=== PATIENT | female | born 1985 | race Caucasian/White ===

== ENCOUNTER 2020-12-16 14:28 | Outpatient (CLI) | payer BC, SELFPAY ==
--- NOTE | ~2020-12-16 | MR_ITS ---
EXAMINATION: MR knee RT wo con DATE: 12/16/2020 15:46 INDICATION: Right knee joint effusion, pain and difficulty straightening the knee post injury one wee k prior TECHNIQUE: Magnetic resonance imaging (MRI) of the right knee was performed without intravenous contr ast. Sequences included coronal PD-weighted FSE, coronal PD-weighted FS FSE, sagittal T2-weighted FS E, sagittal PD-weighted FS FSE and axial PD weighted fat saturated FSE. COMPARISON: None. FINDINGS: Medial compartment: Complex tear at the posterior horn of the medial meniscus with longitudinal vertical tear plane in th e peripheral third of the meniscus and with more irregular tearing at the lateral side of the posteri or horn suggesting partial avulsion at the posterior root. Deep chondral fissuring without degenerati ve subchondral changes at the lateral side of the density anterior to central weightbearing medial fe moral condyle. Articular cartilage is normal at the medial tibial plateau. Lateral compartment: Lateral meniscus is normal. Small partial-thickness chondral flap tear involving approximately 50% th e cartilage thickness at the anterior weightbearing lateral femoral condyle. Remainder of the cartila ge in the lateral compartment is normal. Patellofemoral compartment: Partial-thickness chondral fissuring involving up to 50% the cartilage thickness at the lateral cohen lar facet and apical ridge. More shallow fissuring at the medial facet. Trochlear cartilage is normal . Ligaments and tendons: Complete tear of the anterior cruciate ligament. The posterior cruciate ligament is normal.. The medi al collateral ligament and fibular collateral ligament complex are normal. The extensor mechanism is normal with couple bands of magic angle artifact at the distal patellar tendon. The visualized medial and lateral hamstring tendons as well as the iliotibial band are normal. Fluid: Large right knee joint effusion. Scattered likely reactive subcutaneous edema about the knee. No loos e osteochondral bodies identified. Osseous/other: Mild marrow edema along the posterior rim of the medial and lateral tibial plateaus without evident f racture line most consistent with a bone contusion related to anterior tibial subluxation injury occu rring at the time of the anterior cruciate ligament tear. No fracture or pathologic marrow replacing process. IMPRESSION: 1. Complete tear of the anterior cruciate ligament with likely bone contusion along the posterior rim of the medial lateral tibial plateau consistent with an anterior tibial subluxation injury. 2. Complex tear at the posterior horn of the medial meniscus including a likely partial avulsion of t he posterior root. 3. Small regions of moderate grade chondromalacia along the anterior weightbearing medial and lateral femoral condyles and at the patella. Reviewed, dictated and finalized at location A. IMPRESSION: 1. Complete tear of the anterior cruciate ligament with likely bone contusion a long the posterior rim of the medial lateral tibial plateau consistent with an anterior tibial subluxation injury. 2. Complex tear at the posterior horn of the medial meniscus including a likely partial avulsion of the posterior root. 3. Small regions of moderate grade chondromalacia along the anterior weightbear ing medial and lateral femoral condyles and at the patella.
== END 2020-12-16 14:29 | disposition home or self-care (01) ==
PROVIDERS: Visit Provider Internal Medicine
DX: M25.461 Effusion, right knee (principal); S83.231A Complex tear of medial meniscus, current injury, right knee, initial encounter; X58.XXXA Exposure to other specified factors, initial encounter; S83.511A Sprain of anterior cruciate ligament of right knee, initial encounter
CPT/HCPCS: 73721

== ENCOUNTER 2021-02-18 19:23 | Observation (INO) | payer BC, SELFPAY ==
--- NOTE | ~2021-02-18 | CT_ITS ---
EXAMINATION: CTA chest PE protocol DATE: 02/18/2021 23:08 INDICATION: Chest pain and shortness of breath TECHNIQUE: Computed tomography (CT) pulmonary angiogram of the chest was performed with 200 mL Omnipa que-350 intravenous contrast. Additional 3D reconstructions utilizing coronal maximum intensity proje ction (MIP) were performed. Automated exposure control and iterative reconstruction technique were em ployed. The dose-length product was 467.99 mGy-cm. COMPARISON: None FINDINGS: Excellent contrast opacification of the pulmonary arteries on the second set of images. There is mild streak artifact from dense contrast in the superior vena cava and right atrium. Mild scattered respi ratory motion artifact which does not significantly limit evaluation. There are pulmonary emboli in m ultiple segmental and subsegmental pulmonary arteries in the basilar segments of both the left and ri ght lower lobes, a pulmonary embolism subtle across the bifurcation of the right middle lobar pulmona ry artery as well as pulmonary emboli in the anterior and posterior segmental pulmonary arteries of t he right upper lobe. Patchy regions of groundglass opacity and consolidation, several with peripheral wedge-shaped configuration in the left and to lesser degree right lower lobes most likely representi ng pulmonary infarcts. Small left pleural effusion. Heart size is normal. No leftward bowing of the v entricular septum to suggest right heart strain although there is enlargement of the central pulmonar y arteries consistent with likely secondary pulmonary arterial hypertension. No pericardial effusion. Thoracic aorta is normal in caliber with no dissection. Multinodular goiter which narrows the trache a at the level of the thoracic inlet. No pathologically enlarged thoracic lymphadenopathy. Visualized upper abdomen and bones are unremarkable. IMPRESSION: 1. Numerous pulmonary emboli involving multiple pulmonary arteries in the bilateral lower, right midd le and right upper lobes with moderate to large clot burden. Dr. Abernathy discussed these findings wi Dr. Monk at 11:50 AM. 2. Patchy airspace disease in the basilar segments of the bilateral lower lobes most likely represent ing pulmonary infarcts. 3. Small left pleural effusion. 4. Enlargement of the central pulmonary arteries consistent with pulmonary arterial hypertension like ly secondary to the pulmonary emboli but no leftward bowing of the ventricular septum to suggest righ t heart strain. 5. Multinodular goiter which narrows the trachea at the thoracic inlet. Reviewed, dictated and finalized at location A.
--- NOTE | ~2021-02-18 | CT_ITS ---
EXAMINATION: CT diagnostic chest wo con DATE: 02/18/2021 20:50 INDICATION: left chest pleurisy. sharp chest pain @ midline LT side x 1 day w/SOB TECHNIQUE: Computed tomography (CT) of the chest was performed without intravenous contrast. Addition al 3D reconstructions utilizing coronal maximum intensity projection (MIP) were performed. Automated exposure control and iterative reconstruction technique were employed. The dose-length product was 33 4.58 mGy-cm. COMPARISON: None FINDINGS: Multinodular goiter which mildly narrows the trachea at the level of the thoracic inlet. There are pa tchy regions of groundglass opacity and consolidation in the basilar segments of the bilateral lower lobes and to lesser degree at the caudal aspect of the lingula and right middle lobe. Small left pleu ral effusion. No pneumothorax. Heart size is normal. No pericardial effusion. Thoracic aorta is mick l in caliber. No pathologically enlarged thoracic lymphadenopathy. Visualized upper abdomen and bones are unremarkable. IMPRESSION: 1. Patchy airspace disease in the bilateral lower lungs with differential including pneumonia, atelec tasis, pulmonary infarcts or some combination thereof. 2. Small left pleural effusion. Reviewed, dictated and finalized at location A. IMPRESSION: 1. Patchy airspace disease in the bilateral lower lungs with differential inclu ding pneumonia, atelectasis, pulmonary infarcts or some combination thereof. 2. Small left pleural effusion.
--- NOTE | ~2021-02-18 | CT_ITS ---
EXAMINATION: CTA chest PE protocol DATE: 02/18/2021 23:08 INDICATION: Chest pain and shortness of breath TECHNIQUE: Computed tomography (CT) pulmonary angiogram of the chest was performed with 200 mL Omnipa que-350 intravenous contrast. Additional 3D reconstructions utilizing coronal maximum intensity proje ction (MIP) were performed. Automated exposure control and iterative reconstruction technique were em ployed. The dose-length product was 467.99 mGy-cm. COMPARISON: None FINDINGS: Excellent contrast opacification of the pulmonary arteries on the second set of images. There is mild streak artifact from dense contrast in the superior vena cava and right atrium. Mild scattered respi ratory motion artifact which does not significantly limit evaluation. There are pulmonary emboli in m ultiple segmental and subsegmental pulmonary arteries in the basilar segments of both the left and ri ght lower lobes, a pulmonary embolism subtle across the bifurcation of the right middle lobar pulmona ry artery as well as pulmonary emboli in the anterior and posterior segmental pulmonary arteries of t he right upper lobe. Patchy regions of groundglass opacity and consolidation, several with peripheral wedge-shaped configuration in the left and to lesser degree right lower lobes most likely representi ng pulmonary infarcts. Small left pleural effusion. Heart size is normal. No leftward bowing of the v entricular septum to suggest right heart strain although there is enlargement of the central pulmonar y arteries consistent with likely secondary pulmonary arterial hypertension. No pericardial effusion. Thoracic aorta is normal in caliber with no dissection. Multinodular goiter which narrows the trache a at the level of the thoracic inlet. No pathologically enlarged thoracic lymphadenopathy. Visualized upper abdomen and bones are unremarkable. IMPRESSION: 1. Numerous pulmonary emboli involving multiple pulmonary arteries in the bilateral lower, right midd le and right upper lobes with moderate to large clot burden. Dr. Abernathy discussed these findings wi Dr. Monk at 11:50 AM. 2. Patchy airspace disease in the basilar segments of the bilateral lower lobes most likely represent ing pulmonary infarcts. 3. Small left pleural effusion. 4. Enlargement of the central pulmonary arteries consistent with pulmonary arterial hypertension like ly secondary to the pulmonary emboli but no leftward bowing of the ventricular septum to suggest righ t heart strain. 5. Multinodular goiter which narrows the trachea at the thoracic inlet. Reviewed, dictated and finalized at location A. IMPRESSION: 1. Numerous pulmonary emboli involving multiple pulmonary arteries in the bilat eral lower, right middle and right upper lobes with moderate to large clot fran en. Dr. Abernathy discussed these findings with Dr. Monk at 11:50 AM. 2. Patchy airspace disease in the basilar segments of the bilateral lower lobes most likely representing pulmonary infarcts. 3. Small left pleural effusion. 4. Enlargement of the central pulmonary arteries consistent with pulmonary anisha rial hypertension likely secondary to the pulmonary emboli but no leftward bowi ng of the ventricular septum to suggest right heart strain. 5. Multinodular goiter which narrows the trachea at the thoracic inlet.
[2021-02-18 19:35] VITALS: BP 143/74; PULSE 90; RESP 22; TEMP 38.1; O2SAT 100
--- NOTE | 2021-02-18 19:50 | ECG_ITS ---
Measurements Intervals [place] Rate: 115 P: 109 NH: 150 QRS: 147 QRSD: 100 T: -22 QT: 326 QTc: 452 Interpretive Statements SINUS TACHYCARDIA POSSIBLE LEFT ATRIAL ENLARGEMENT LEFT POSTERIOR FASCICULAR BLOCK BORDERLINE ST-T WAVE ABNORMALITY- INFERIOR LEADS BASELINE ARTIFACT- I, II, III, AVR, AVL, AVF, V1-V6 ABNORMAL ECG Electronically Signed On 02-19-2021 6:13:57 CDT by Ryan Engle D.O.
[2021-02-18] MEDS: SODIUM CHLORIDE 0.9% IV 1,000 ML 999 ML IV CONT (20:10)
[2021-02-18] MEDS: KETOROLAC (*BKC) 60 MG/2 ML VIAL IM (20:10)
[2021-02-18 20:26] LABS: Basophils Absolute Auto 0.05 K/mm3 (0.00-0.10); Basophils Percent Auto 0.4 % (0.0-1.0); Eosinophils Percent Auto 0.8 % (1.0-6.0); Hematocrit 37.9 % (35.0-49.0); Hemoglobin 12.4 g/dL (12.0-15.0); Immature Granulocyte Absolute 0.07 K/mm3 (0.00-0.00); Immature Granulocyte Percent A 0.5 % (0.0-0.0); Lymphocytes Absolute Auto 2.77 K/mm3 (1.10-4.50); Lymphocytes Percent Auto 21.3 % (18.0-42.0); Mean Corpuscular HGB Conc 32.7 g/dL (32.0-36.0); Mean Corpuscular Volume 88.6 fL (78.0-102.0); Mean Platelet Volume 9.2 fl (9.2-11.8); Monocytes Percent Auto 6.9 % (2.0-11.0); Neutrophils Absolute Auto 9.1 K/mm3 (1.7-7.2); Neutrophils Percent Auto 70.1 % (50.0-70.0); Platelet Count Result 338 K/mm3 (150-420); Red Blood Count 4.28 M/mm3 (4.20-5.40); Red Cell Distribution Width 12.1 % (11.6-14.4)
--- NOTE | 2021-02-18 20:31 | ED.CHESTPAIN ---
HPI - Chest Pain General Chief Complaint: Chest Pain Stated Complaint: stabbing pains in left side abd and shoudler Time Seen by Provider: 02/19/21 11:00 Source: patient, family and RN notes reviewed Mode of arrival: ambulatory Limitations: no limitations History of Present Illness MD complaint: chest pain (pleuritic and sudden x 12 hrs.) Onset (ago): hour(s) (12) Timing of current episode: constant and still present Prior episodes: No Onset: during rest and awoke with symptoms Pain location: substernal, left chest and lateral Pain radiation: none Severity: moderate Pain scale (0-10): 8 Quality: aching and sharp Relieving factors: nothing Exacerbating factors: exertion Context: recent surgery Associated symptoms: dyspnea and palpitations Treatment prior to arrival: none Risk Factors Coronary artery disease risk factors: smoking history Pulmonary embolism risk factors: recent surgery Related Data Home Medications Medication Instructions Recorded Confirmed Lo Loestrin Fe 1 tablet PO DAILY 02/18/21 02/18/21 Senna Plus 1 tab-cap PO BID PRN 02/18/21 02/18/21 ascorbic acid (vitamin C) 500 mg PO BID 02/18/21 02/19/21 cholecalciferol (vitamin D3) 50 mcg PO DAILY 02/18/21 02/18/21 [Vitamin D3] hydrocodone-acetaminophen 1 tablet PO PRN PRN 02/18/21 02/18/21 Allergies Allergy/AdvReac Type Severity Reaction Status Date / Time No Known Allergies Allergy Unverified 04/25/17 06:22 Review of Systems Review of Systems: All systems reviewed & are unremarkable except as noted in HPI and below Constitutional: Constitutional: Reports as per HPI and Reports no additional constitutional complaints Eyes: Eyes: Reports as per HPI and Reports no additional eye complaints ENT: Reports system reviewed and no additional complaints, except as documented and Reports as per HPI Cardiovascular: Cardiovascular: Reports as per HPI and Reports no additional cardiovascular complaints Respiratory: Respiratory: Reports as per HPI and Reports no additional respiratory complaints Gastrointestinal: Gastrointestinal: Reports as per HPI and Reports no additional gastrointestinal complaints Genitourinary: Genitourinary: Reports no additional female genitourinary complaints and Reports as per HPI Musculoskeletal: Musculoskeletal: Reports no additional musculoskeletal complaints and Reports as per HPI Integumentary/Breasts: Skin/Breast: Reports system reviewed and no additional complaints, except as docu and Reports as per HPI Neurologic: Reports system reviewed and no additional complaints, except as documented and Reports as per HPI Psychiatric: Psychiatric: Reports no additional psychiatric complaints and Reports as per HPI Endocrine: Endocrine: Reports no additional endocrine complaints and Reports as per HPI Hematologic/Lymphatic: Hematologic/Lymphatic: Reports no additional hematologic/lymphatic complaints and Reports as per HPI Allergic/Immunologic: Allergic/Immunologic: Reports no additional allergic/immunologic complaints and Reports as per HPI PMFSH Past Medical History Medical History Chest pain Surgical History Surgical History History of X2 History of radial keratotomy S/P ACL repair Status post knee surgery Social History Social History Smoking packs per day: 1 Smoking cigarettes per day: 20.0 Smoking status: Former smoker Tobacco type: cigarettes Alcohol intake: never Substance use: never Gender identity (if verbalized by the patient): Female Spiritual care concerns: No Exam Const: General: no acute distress and alert Nutritional Appearance: obese Orientation/consciousness: patient oriented x3 Limitations: no limitations HENMT: Head: normal to inspection Ears: external ears normal and TM's normal bilaterally General n
[2021-02-18 20:32] LABS: SPREG INTERNAL CONTROL Positive; Serum Qual hCG Negative
[2021-02-18 20:38] LABS: Alanine Aminotransferase 28 U/L (14-59); Albumin Level 3.3 g/dL (3.4-5.0); Alkaline Phosphatase 58 U/L (46-116); Anion Gap 11 mmol/L (8-16); Aspartate Amino Transferase 17 U/L (15-37); Bilirubin,Total 0.4 mg/dL (0.00-1.00); Blood Urea Nitrogen 14 mg/dL (7-18); Calcium 8.6 mg/dL (8.5-10.1); Carbon Dioxide 25 mmol/L (21-32); Chloride 104 mmol/L (98-108); Estimated CRCL calculation 127 ml/min; Estimated Glomerular Filt Rate > 60; Glucose 115 mg/dL (70-99); Osmolality Calculated 291 mOsm/kg (285-295); Potassium 4.1 mmol/L (3.5-5.1); Sodium 140 mmol/L (136-145); Total Protein 7.8 g/dL (6.4-8.2)
[2021-02-18 20:40] LABS: Lactic Acid Reflex 0.7 mmol/L (0.4-2.0); Troponin I < 4.0 ng/L (0.00-60.4)
[2021-02-18] MEDS: ACETAMINOPHEN 325 MG TABLET 650 MG PO (20:54)
[2021-02-18] MEDS: methylPREDNISolone SOD SUCC 125 MG VIAL IV PUSH (21:30)
[2021-02-18 21:32] VITALS: TEMP 37.1
[2021-02-18] MEDS: AZITHROMYCIN 250 MG TABLET 500 MG PO (21:32)
[2021-02-18 21:43] LABS: Base Excess ABG -1.4 mmol/L (0-2); Device ROOM AIR; HCO3 ABG 21.2 mmol/L (23-29); Modified Allen's Test Pass; Oxygen Saturation ABG 96.3 % (95-97); Oxyhemoglobin 95.7 % (94-100); PCO2 ABG 29.4 mmHg (35-45); PO2 ABG 87.2 mmHg (80-90); Site Drawn LEFT RADIAL; Total Hemoglobin 12.6 g/dL (12.0-18.0); pH ABG 7.48 (7.35-7.45)
[2021-02-18 21:59] LABS: SARS-CoV-2 Ag Negative (Negative)
[2021-02-18] MEDS: ALBUTEROL SULFATE (*SP) INHALER 2 PUFF INHALATION (22:09)
--- NOTE | 2021-02-18 22:58 | PC.NURSE ---
Report to Jenise RN
[2021-02-18 23:48] VITALS: BP 130/78; PULSE 78; RESP 18; O2SAT 98
[2021-02-19] VITALS (11 sets, daily range): BP systolic 112–140; BP diastolic 68–84; PULSE 70–113; RESP 16–20; TEMP 36.6–37.6; O2SAT 94–98; BMI 35.2
--- NOTE | 2021-02-19 00:19 | PC.NURSE ---
MD request to consult with Hospitalist at [facility]. call placed. patient aware
[2021-02-19] MEDS: ENOXAPARIN 1 MG/KG 114 MG SUB-Q (01:15)
--- NOTE | 2021-02-19 01:53 | PC.NURSE ---
ER hold, waiting list for [facility] or [facility]. Report to Ebony 2nd floor nurse
--- NOTE | 2021-02-19 02:16 | PC.NURSE ---
Patient moved to room 208 from ER for ER hold. Patient is alert and oriented x 3, no c/o pain, no shortness of breath at present, oriented to room and call light.
[2021-02-19 05:53] LABS: Basophils Absolute Auto 0.01 K/mm3 (0.00-0.10); Basophils Percent Auto 0.1 % (0.0-1.0); Hematocrit 35.8 % (35.0-49.0); Hemoglobin 11.9 g/dL (12.0-15.0); Immature Granulocyte Absolute 0.08 K/mm3 (0.00-0.00); Immature Granulocyte Percent A 0.8 % (0.0-0.0); Lymphocytes Absolute Auto 1.54 K/mm3 (1.10-4.50); Lymphocytes Percent Auto 14.9 % (18.0-42.0); Mean Corpuscular HGB Conc 33.2 g/dL (32.0-36.0); Mean Corpuscular Volume 87.3 fL (78.0-102.0); Mean Platelet Volume 9.3 fl (9.2-11.8); Monocytes Absolute Auto 0.19 K/mm3 (0.10-0.90); Monocytes Percent Auto 1.8 % (2.0-11.0); Neutrophils Absolute Auto 8.5 K/mm3 (1.7-7.2); Neutrophils Percent Auto 82.4 % (50.0-70.0); Platelet Count Result 334 K/mm3 (150-420); White Blood Count 10.4 K/mm3 (4.8-10.8)
[2021-02-19 06:10] LABS: Alanine Aminotransferase 27 U/L (14-59); Albumin Level 3.2 g/dL (3.4-5.0); Alkaline Phosphatase 57 U/L (46-116); Anion Gap 9 mmol/L (8-16); Aspartate Amino Transferase 11 U/L (15-37); Bilirubin,Total 0.3 mg/dL (0.00-1.00); Blood Urea Nitrogen 13 mg/dL (7-18); Calcium 8.7 mg/dL (8.5-10.1); Carbon Dioxide 25 mmol/L (21-32); Chloride 103 mmol/L (98-108); Estimated CRCL calculation 128 ml/min; Estimated Glomerular Filt Rate > 60; Glucose 174 mg/dL (70-99); Osmolality Calculated 288 mOsm/kg (285-295); Potassium 3.6 mmol/L (3.5-5.1); Sodium 137 mmol/L (136-145); Total Protein 7.7 g/dL (6.4-8.2)
[2021-02-19] MEDS: ENOXAPARIN 120 MG/0.8 ML SYRINGE 115 MG SUB-Q (15:08)
--- NOTE | 2021-02-19 18:59 | PM.IMHP ---
H&P: HPI History of Present Illness Date/Time: 02/19/21 18:59 Chief Complaint: Chest pain Narrative: Previously well 35-year-old woman admitted as an ER hold to the floor early this morning after presenting with stabbing pains on the left side of her upper abdomen and in her left shoulder. Symptoms started approximately 12 hours prior to arrival but she had had some shortness of breath on exertion prior. She states that her symptoms started after she underwent ACL surgery on her right knee. She has been taking aspirin since. She had a low-grade fever on arrival but denies cough, sore throat, congestion, dysuria and trauma. She currently takes control pills but no longer smokes. She has had no prior similar symptoms nor has she had DVTs or PEs in the past. She has no family history of PEs or DVTs. Review of Systems Constitutional: Constitutional: Denies body ache(s), Denies chills, Denies fatigue, Denies lethargy and Denies weakness ENT: Denies nasal congestion and Denies nasal discharge Cardiovascular: Cardiovascular: Reports chest pain, Denies pedal edema, Denies leg edema, Denies lightheadedness and Denies palpitations Respiratory: Respiratory: Denies cough, Denies hemoptysis, Denies dyspnea, Reports dyspnea on exertion and Denies wheezing Gastrointestinal: Gastrointestinal: Reports abdominal pain, Denies nausea and Denies vomiting Genitourinary: Genitourinary: Denies nocturia and Denies dysuria Musculoskeletal: Musculoskeletal: Denies back pain, Reports arthralgias, Denies joint swelling and Denies neck pain Integumentary/Breasts: Skin/Breast: Denies pruritus, Denies erythema and Denies rash Neurologic: Denies Abnormal speech present, Denies confusion, Denies vertigo, Denies headache(s) and Denies numbness Hematologic/Lymphatic: Hematologic/Lymphatic: Denies easy bleeding and Denies easy bruising Allergic/Immunologic: Allergic/Immunologic: Denies urticaria, Denies lip swelling, Denies throat swelling and Denies wheezing PMFSH Past Medical History Medical History (Updated 02/19/21 @ 05:50 by Peggy Monk MD) Chest pain Surgical History Surgical History History of X2 History of radial keratotomy S/P ACL repair Status post knee surgery Social History Social History Smoking packs per day: 1 Smoking cigarettes per day: 20.0 Smoking status: Former smoker Tobacco type: cigarettes Alcohol intake: never Substance use: never Gender identity (if verbalized by the patient): Female Sexual Orientation (if Verbalized by the Patient): Straight or Heterosexual Spiritual care concerns: No Meds Home Medications and Allergies Home Medications Medication Instructions Recorded Confirmed Type ascorbic acid (vitamin C) 500 mg PO BID 02/18/21 02/19/21 History aspirin 81 mg PO DAILY 02/18/21 02/18/21 History cholecalciferol (vitamin D3) 50 mcg PO DAILY 02/18/21 02/18/21 History [Vitamin D3] hydrocodone-acetaminophen 1 tablet PO PRN PRN 02/18/21 02/18/21 History norethindrone-e.estradiol-iron [Lo 1 tablet PO DAILY 02/18/21 02/18/21 History Loestrin Fe] sennosides-docusate sodium [Senna 1 tab-cap PO BID PRN 02/18/21 02/18/21 History Plus] apixaban 10 mg PO BID #70 tablet 02/19/21 Rx apixaban [Eliquis DVT-PE Treat 30D See Rx Instructions .ROUTE 02/19/21 Rx Start] .COMPLEX #74 ea Allergies Allergy/AdvReac Type Severity Reaction Status Date / Time No Known Allergies Allergy Unverified 04/25/17 06:22 Vital Signs Vital Signs - 24 hr 02/18/21 19:35 02/18/21 21:32 02/18/21 23:48 Temperature 38.1 C H 37.1 C Pulse Rate 90 78 Respiratory Rate 22 H 18 Blood Pressure 143/74 H 130/78 Pulse Oximetry 100 98 02/19/21 01:44 02/19/21 02:01 02/19/21 02:13 Temperature 36.7 C 36.9 C Pulse Rate 70 102 H 105 H Respiratory Rate 20 20 20 Blood Pressure
--- NOTE | 2021-02-19 20:42 | PC.NURSE ---
Pedal/Post tibial pulse to RLE strong. Capillary refill<3 seconds. RLE elevated on one pillow.
[2021-02-20] VITALS (9 sets, daily range): BP systolic 118–125; BP diastolic 67–81; PULSE 77–110; RESP 16; TEMP 36.8–37.3; O2SAT 94–97
--- NOTE | 2021-02-20 02:15 | PC.NURSE ---
Sleeping, no signs of distress, RLE elevated on one pillow. No shortness of breath. Telemetry:88-94 regular, No ectopy.
[2021-02-20] MEDS: ENOXAPARIN 120 MG/0.8 ML SYRINGE 115 MG SUB-Q (03:07)
--- NOTE | 2021-02-20 04:18 | PC.NURSE ---
Sleeping; Telemetry: 74-80 regular. Pox:97% on room air. Skin pink, no distress noted. RLE elevated on one pillow, Head of bed up 20 degrees.
[2021-02-20 06:11] LABS: Basophils Absolute Auto 0.04 K/mm3 (0.00-0.10); Basophils Percent Auto 0.3 % (0.0-1.0); Eosinophils Absolute Auto 0.08 K/mm3 (0.02-0.50); Eosinophils Percent Auto 0.6 % (1.0-6.0); Hematocrit 35.9 % (35.0-49.0); Hemoglobin 11.9 g/dL (12.0-15.0); Immature Granulocyte Absolute 0.06 K/mm3 (0.00-0.00); Immature Granulocyte Percent A 0.5 % (0.0-0.0); Lymphocytes Absolute Auto 5.38 K/mm3 (1.10-4.50); Lymphocytes Percent Auto 42.6 % (18.0-42.0); Mean Corpuscular HGB Conc 33.1 g/dL (32.0-36.0); Mean Corpuscular Hemoglobin 29.2 pg (27.0-31.0); Mean Corpuscular Volume 88.2 fL (78.0-102.0); Mean Platelet Volume 9.3 fl (9.2-11.8); Monocytes Absolute Auto 0.77 K/mm3 (0.10-0.90); Monocytes Percent Auto 6.1 % (2.0-11.0); Neutrophils Absolute Auto 6.3 K/mm3 (1.7-7.2); Neutrophils Percent Auto 49.9 % (50.0-70.0); Platelet Count Result 344 K/mm3 (150-420); Red Blood Count 4.07 M/mm3 (4.20-5.40); Red Cell Distribution Width 12.1 % (11.6-14.4); White Blood Count 12.6 K/mm3 (4.8-10.8)
[2021-02-20 06:35] LABS: Alanine Aminotransferase 27 U/L (14-59); Albumin Level 3.1 g/dL (3.4-5.0); Alkaline Phosphatase 51 U/L (46-116); Anion Gap 11 mmol/L (8-16); Aspartate Amino Transferase 14 U/L (15-37); Bilirubin,Total 0.2 mg/dL (0.00-1.00); Blood Urea Nitrogen 17 mg/dL (7-18); Calcium 8.7 mg/dL (8.5-10.1); Carbon Dioxide 25 mmol/L (21-32); Chloride 106 mmol/L (98-108); Estimated CRCL calculation 128 ml/min; Estimated Glomerular Filt Rate > 60; Glucose 110 mg/dL (70-99); Osmolality Calculated 296 mOsm/kg (285-295); Potassium 3.6 mmol/L (3.5-5.1); Sodium 142 mmol/L (136-145); Total Protein 7.2 g/dL (6.4-8.2)
--- NOTE | 2021-02-20 07:30 | PM.DS ---
DS: Admitting Diagnosis Admitting Diagnosis PE <BRICE Amador - Last Filed: 02/20/21 12:39> DS: Summary Hospital Course Hospital Course: Previously well 35-year-old woman admitted as an ER hold to the floor early this morning after presenting with stabbing pains on the left side of her upper abdomen and in her left shoulder. Symptoms started approximately 12 hours prior to arrival but she had had some shortness of breath on exertion prior. She states that her symptoms started after she underwent ACL surgery on her right knee. She has been taking aspirin since. She had a low-grade fever on arrival but denies cough, sore throat, congestion, dysuria and trauma. She currently takes control pills but no longer smokes. She has had no prior similar symptoms nor has she had DVTs or PEs in the past. She has no family history of PEs or DVTs. She will be discharged today on Eliquis and follow-up with her primary care physician. The patient denies , palpitation, extremity numbness, lightheadedness, dizziness, constipation, diarrhea, chills, or fever. Continues to complain of shortness of breath, abdominal pain with occasional chest discomfort Observation Disposition discharged home with self-care Patient was set up to transfer to outside hospital both called transferred and accepted due to lateral move patient not a candidate for thrombolysis therapy <BRICE Amador - Last Filed: 02/20/21 12:39> Time Spent with Patient Time attestation: Total time spent providing and/or coordinating discharge services: 60 minutes <BRICE Amador - Last Filed: 02/20/21 12:39> Exam Narrative: GENERAL: This is a well-nourished, well-developed patient, in no apparent distress. HEAD: normocephalic, atraumatic. EYES: PERRL. Sclera clear/white. Vision is grossly intact. EARS: External ears normal, auditory canals clear and without drainage, TMs normal without perforation. Hearing grossly intact. NOSE: External nose normal with no obvious nasal discharge, nares without redness, no rhinorrhea. THROAT: Mucous membranes moist, posterior pharynx clear. NECK: Neck supple, non-tender without lymphadenopathy, masses or thyromegaly. CARDIOVASCULAR: Regular rate and rhythm without murmurs, gallops, or rubs. RESPIRATORY: Clear to auscultation. Breath sounds equal bilaterally. No wheezes, rales, or rhonchi. GASTROINTESTINAL: Abdomen soft, non-tender, nondistended. Bowel sounds are active. No hepato-splenomegaly, or palpable masses. No guarding. SKIN: warm, intact with no suspicious lesions or rash, good texture and turgor. NEURO: awake, alert, and oriented to person, place and time. There were no obvious focal neurologic abnormalities. Steady gait EXTREMITIES: Normal range of motion. No edema. No calf tenderness. Negative Homans sign bilaterally. BACK: Nontender without deformity or crepitance. No flank tenderness. <BRICE Amador - Last Filed: 02/20/21 12:39> DS: Data Data Completed and Pending Labs on day of discharge: Labs from last 24 hours 02/20/21 02/20/21 05:22 05:21 WBC 12.6 H RBC 4.07 L Hgb 11.9 L Hct 35.9 MCV 88.2 MCH 29.2 MCHC 33.1 RDW 12.1 Plt Count 344 MPV 9.3 Immature Gran % (Auto) 0.5 H Neut % (Auto) 49.9 L Lymph % (Auto) 42.6 H [place] % (Auto) 6.1 Eos % (Auto) 0.6 L Baso % (Auto) 0.3 Lymph # (Auto) 5.38 H [place] # (Auto) 0.77 Eos # (Auto) 0.08 Baso # (Auto) 0.04 Abs Immat Gran (auto) 0.06 H Absolute Neuts (auto) 6.3 Absolute Nucleated RBC 0.00 Nucleated RBC % 0.0 Sodium 142 Potassium 3.6 Chloride 106 Carbon Dioxide 25 Anion Gap 11 BUN 17 Creatinine 0.66 Estim Creat Clear Calc 128 Estimated GFR > 60 Glucose 110 H Calculated Osmolality 296 H Calcium 8.7 Total Bilirubin 0.2 AST 14 L ALT 27 Alkaline Phosphatase 51 Total Protein 7.2 Albumin 3.1 L <BRICE Amador - Last Filed:
[2021-02-20] MEDS: CHOLECALCIFEROL 1,000 UNITS TABLET 2000 UNITS PO (08:57)
[2021-02-20] MEDS: APIXABAN 2.5 MG TABLET 10 MG PO (08:57)
[2021-02-20] MEDS: ASCORBIC ACID 500 MG TABLET PO (08:58)
--- NOTE | 2021-02-20 11:24 | PC.NURSE ---
Pt discharge instruction completed. Medication instructions given to pt and spouse. Disc copy of scans given to pt. Pt verbalized understanding of instructions. RN took pt to family car via .
== END 2021-02-20 11:10 | disposition home or self-care (01) ==
LOC: CHSED 19:26 → CHS2ND 02-19 01:38 → CHSED 02-19 17:27 → CHS2ND 02-19 17:27
PROVIDERS: Emergency Medicine; Admitting Provider Emergency Medicine; Emergency Provider Emergency Medicine; Visit Provider Emergency Medicine
DX: T81.718A Complication of other artery following a procedure, not elsewhere classified, initial encounter (principal); I26.99 Other pulmonary embolism without acute cor pulmonale; I27.20 Pulmonary hypertension, unspecified; Z98.890 Other specified postprocedural states; Z87.891 Personal history of nicotine dependence; Z20.822 Contact with and (suspected) exposure to COVID-19
CPT/HCPCS: 36415; 36600; 71250; 71275; 80053; 82805; 83605; 84484; 84703; 85025; 87040; 87426; 93005; 96365; 96372; 96375; 99285; A9270; C9803; G0378; J0696; J1650; J1885; J2930; J7030; Q9967

== ENCOUNTER 2021-03-07 13:57 | Outpatient (RCR) | payer BC, SELFPAY ==
--- NOTE | 2021-03-07 15:13 | PTOPEVAL ---
Thank you for referring Sara Pierson to [facility].? The patient is scheduled to be seen for therapy? ____x/week for ___ weeks. Please review, sign, date and return this plan of care SHIVAM. I agree with and certify that the following plan of care is medically necessary. Referring Physician Date Admitting Provider: Attending Provider: Gerson Alvarez, Referring Provider: *PT Outpatient Evaluation Start: 03/07/21 14:06 Freq: Status: Active Protocol: Document 03/07/21 14:12 ACR (Rec: 03/07/21 15:12 ACR [id number]) Therapy Assessment Status Assessment Status Assessment Status Evaluation Outpatient Past Medical History Neurological History Hx Neurological Disorders No Significant History Cardiovascular History Hx Cardiac Disorders No Significant History Respiratory History Hx Pulmonary Embolism Yes: Current PEs to Right lung . Gastrointestinal History Hx Gastrointestinal Disorders No Significant History Genitourinary History Hx Genitourinary Disorders No Significant History Musculoskeletal History Hx Crutches or Walker Use Yes: Due to recent ACL repair Query Text:If Yes, Enter Crutches, surgery. Walker, or Both in the Comment Hx Other Musculoskeletal Disorders Yes: Right leg ACL repair and Miniscus Hematological History Hx Hematological Disorders No Significant History Endocrine History Hx Endocrine Disorders No Significant History HEENT History Hx Eye Surgery Yes: PRK on bilateral eyes Integumentary History Hx Skin Disorders No Significant History Reproductive History Hx Section Yes: x2 Psychosocial History Hx Psychiatric Disorders No Significant History Pain History History of Any Previous or Ongoing No Significant History Instance of Pain Anesthesia History Hx Anesthesia Reactions No Significant History Evaluation Information Problem Diagnosis R ACL reconstruction with meniscus repair Onset 02/10/21 Subjective Information Patient states that she was Query Text:As Reported By Patient/ warming up for a softball game Family and was throwing a ball and just fell to the ground. She states she got surgery a month and a half later. She then had multiple blood clots in her lungs and is getting an ultrasound on her legs later this week. Patient states she is NWB and only takes the brace off to shower. Patient
--- NOTE | 2021-04-01 11:19 | PTOPEVAL ---
Thank you for referring Sara Pierson to [facility].? The patient is scheduled to be seen for therapy? __2__x/week for 8 visits. Please review, sign, date and return this plan of care SHIVAM. I agree with and certify that the following plan of care is medically necessary. Referring Physician Date Admitting Provider: Attending Provider: Gerson Alvarez, Referring Provider: *PT Outpatient Evaluation Start: 03/07/21 14:06 Freq: Status: Active Protocol: Document 04/01/21 09:58 IDALIA (Rec: 04/01/21 11:19 IDALIA [id number]) Therapy Assessment Status Assessment Status Assessment Status Progress Outpatient Past Medical History Neurological History Hx Neurological Disorders No Significant History Cardiovascular History Hx Cardiac Disorders No Significant History Respiratory History Hx Pulmonary Embolism Yes: Current PEs to Right lung . Gastrointestinal History Hx Gastrointestinal Disorders No Significant History Genitourinary History Hx Genitourinary Disorders No Significant History Musculoskeletal History Hx Crutches or Walker Use Yes: Due to recent ACL repair Query Text:If Yes, Enter Crutches, surgery. Walker, or Both in the Comment Hx Other Musculoskeletal Disorders Yes: Right leg ACL repair and Miniscus Hematological History Hx Hematological Disorders No Significant History Endocrine History Hx Endocrine Disorders No Significant History HEENT History Hx Eye Surgery Yes: PRK on bilateral eyes Integumentary History Hx Skin Disorders No Significant History Reproductive History Hx Section Yes: x2 Psychosocial History Hx Psychiatric Disorders No Significant History Pain History History of Any Previous or Ongoing No Significant History Instance of Pain Anesthesia History Hx Anesthesia Reactions No Significant History Evaluation Information Problem Subjective Information Pt. reports that pain levels Query Text:As Reported By Patient/ are 0/10 at rest. She reports Family that she increases pain levels to 6/10 with exercise. She states that she is still limited in strength and mobility. Pt. reports she continues to lock her brace with ambulation. She reports that her goal for therapy remains to walk normally. Pain Assessment Pain Scale Pain Scale Used Numeric (1 - 10) Self Report Pain Assessment Right Knee(s) Reported Pain Level 4 Pain Score Pain Score 4: Self Report Interventions U
--- NOTE | 2021-04-28 10:00 | PTOPEVAL ---
Thank you for referring Sara Pierson to [facility].? The patient is scheduled to be seen for therapy? ____x/week for ___ weeks. Please review, sign, date and return this plan of care SHIVAM. I agree with and certify that the following plan of care is medically necessary. Referring Physician Date Admitting Provider: Attending Provider: Gerson Alvarez, Referring Provider: *PT Outpatient Evaluation Start: 03/07/21 14:06 Freq: Status: Active Protocol: Document 04/28/21 07:33 ACR (Rec: 04/28/21 08:43 ACR [id number]) Therapy Assessment Status Assessment Status Assessment Status Progress Outpatient Past Medical History Neurological History Hx Neurological Disorders No Significant History Cardiovascular History Hx Cardiac Disorders No Significant History Respiratory History Hx Pulmonary Embolism Yes: Current PEs to Right lung . Gastrointestinal History Hx Gastrointestinal Disorders No Significant History Genitourinary History Hx Genitourinary Disorders No Significant History Musculoskeletal History Hx Crutches or Walker Use Yes: Due to recent ACL repair Query Text:If Yes, Enter Crutches, surgery. Walker, or Both in the Comment Hx Other Musculoskeletal Disorders Yes: Right leg ACL repair and Miniscus Hematological History Hx Hematological Disorders No Significant History Endocrine History Hx Endocrine Disorders No Significant History HEENT History Hx Eye Surgery Yes: PRK on bilateral eyes Integumentary History Hx Skin Disorders No Significant History Reproductive History Hx Section Yes: x2 Psychosocial History Hx Psychiatric Disorders No Significant History Pain History History of Any Previous or Ongoing No Significant History Instance of Pain Anesthesia History Hx Anesthesia Reactions No Significant History Evaluation Information Problem Diagnosis R ACL reconstruction with meniscus repair Onset 02/10/21 Subjective Information Patient states that since Query Text:As Reported By Patient/ beginning therapy she has seen Family a lot of progress. She continues to report increased stiffness. She reports that her walking is still abnormal and she has difficulty going down the steps because of weakness. She states that she is unable to get down on the grorund with her kids because of getting up and the bend is
--- NOTE | 2021-06-21 17:16 | PTOPEVAL ---
Thank you for referring Sara Pierson to [facility].? The patient is scheduled to be seen for therapy? ____x/week for ___ weeks. Please review, sign, date and return this plan of care SHIVAM. I agree with and certify that the following plan of care is medically necessary. Referring Physician Date Admitting Provider: Attending Provider: Gerson Alvarez, Referring Provider: *PT Outpatient Evaluation Start: 03/07/21 14:06 Freq: Status: Active Protocol: Document 06/21/21 15:58 ACR (Rec: 06/21/21 17:12 ACR [id number]) Therapy Assessment Status Assessment Status Assessment Status Discharge Outpatient Past Medical History Neurological History Hx Neurological Disorders No Significant History Cardiovascular History Hx Cardiac Disorders No Significant History Respiratory History Hx Pulmonary Embolism Yes: Current PEs to Right lung . Gastrointestinal History Hx Gastrointestinal Disorders No Significant History Genitourinary History Hx Genitourinary Disorders No Significant History Musculoskeletal History Hx Crutches or Walker Use Yes: Due to recent ACL repair Query Text:If Yes, Enter Crutches, surgery. Walker, or Both in the Comment Hx Other Musculoskeletal Disorders Yes: Right leg ACL repair and Miniscus Hematological History Hx Hematological Disorders No Significant History Endocrine History Hx Endocrine Disorders No Significant History HEENT History Hx Eye Surgery Yes: PRK on bilateral eyes Integumentary History Hx Skin Disorders No Significant History Reproductive History Hx Section Yes: x2 Psychosocial History Hx Psychiatric Disorders No Significant History Pain History History of Any Previous or Ongoing No Significant History Instance of Pain Anesthesia History Hx Anesthesia Reactions No Significant History Evaluation Information Problem Diagnosis R ACL reconstruction with meniscus repair Onset 02/10/21 Subjective Information Patient reports that since Query Text:As Reported By Patient/ beginning therapy she feels a Family lot better. She states that she sits most of the day because of work. She states that she is really stiff in the mornings and is really sore after walking for a period of time. Patient states that she still has difficulty with descending steps and walking/standing for a period
== END 2021-06-21 23:59 | disposition home or self-care (01) ==
LOC: CHSPT 13:57
PROVIDERS: Visit Provider Orthopaedic Surgery
DX: Z98.890 Other specified postprocedural states (principal)
CPT/HCPCS: 97014; 97016; 97110; 97140; 97161; 97530; G0283

== ENCOUNTER 2021-03-08 09:08 | Outpatient (CLI) | payer BC, SELFPAY ==
[2021-03-08 10:13] LABS: Anion Gap 13 mmol/L (8-16); Blood Urea Nitrogen 16 mg/dL (7-18); Carbon Dioxide 24 mmol/L (21-32); Chloride 103 mmol/L (98-108); Estimated Glomerular Filt Rate > 60; Glucose 128 mg/dL (70-99); Osmolality Calculated 293 mOsm/kg (285-295); Potassium 4.2 mmol/L (3.5-5.1); Sodium 140 mmol/L (136-145); Thyroid Stimulating Hormone 1.31 uIU/mL (0.36-3.74)
== END 2021-03-08 09:09 | disposition home or self-care (01) ==
LOC: CHSLAB 09:11
PROVIDERS: PCP Nurse Practitioner; Visit Provider Nurse Practitioner
DX: I26.99 Other pulmonary embolism without acute cor pulmonale (principal); E07.9 Disorder of thyroid, unspecified
CPT/HCPCS: 36415; 80048; 81240; 81241; 84443; 85303

== ENCOUNTER 2021-03-10 10:44 | Outpatient (CLI) | payer BC, SELFPAY ==
--- NOTE | 2021-03-10 11:09 | ECHO_ITS ---
Patient Info Name: Sara Pierson Age: 35 years : 1985 Gender: Female Ht: 68 in Wt: 230 lbs BSA: 2.28 m2 HR: 95 bpm BP: 114 / 80 mmHg Heart Rhythm: Sinus Rhythm Technical Quality: Good Exam Date: 03/10/2021 11:22 AM Exam Location: [facility] Patient Status: Outpatient Admit Date: 03/10/2021 Staff Ordering Physician: Mary Etienne NP Project Manager: Marquita Soni RDCS Attending Provider: Mary Etienne NP Referring Physician: Jaimie CORBIN; Exam Type: CA echo doppler color flow Study Info Indications I26.99 - Other pulmonary embolism without acute cor pulmonale Complete two-dimensional, color flow and Doppler transthoracic echocardiogram is performed. Summary 1. Complete two-dimensional, color flow and Doppler transthoracic echocardiogram is performed. 2. Left ventricular systolic function is normal, estimated at 60-65%. 3. The left ventricular diastolic function is normal. 4. There is no aortic valve stenosis. 5. There is no mitral valve regurgitation. 6. There is trace tricuspid valve regurgitation. 7. No pulmonary hypertension, estimated pulmonary arterial systolic pressure is 27 mmHg. Left Ventricle Left ventricular chamber dimension is normal. Left ventricular systolic function is normal, estimated at 60-65%. There is no increased left ventricular wall thickness. The left ventricular diastolic function is normal. Right Ventricle Right ventricular chamber dimension is normal. Left Atria Left atrial chamber dimension is normal. Right Atria Right atrial chamber dimension is normal. Aortic Valve The aortic valve is not well visualized. There is no aortic valve stenosis. There is no aortic valve regurgitation. Pulmonic Valve The pulmonic valve is not well visualized. Mitral Valve The mitral valve has normal leaflets. There is no mitral valve regurgitation. Tricuspid Valve The tricuspid valve leaflets are normal. There is trace tricuspid valve regurgitation. No pulmonary hypertension, estimated pulmonary arterial systolic pressure is 27 mmHg. Pericardium/Pleural The pericardium appears normal. There is no pericardial effusion. Inferior Vena Cava Normal inferior vena cava with >50% collapse upon inspiration consistent with normal right atrial pressure, 5 mmHg. Aorta The aortic root size at the sinus of Valsalva is normal. Left Ventricular Outflow Tract Name Value Normal LVOT 2D LVOT Diameter 2.0 cm LVOT Doppler LVOT Peak Gradient 4 mmHg LVOT Mean Gradient 3 mmHg LVOT VTI 20 cm LVOT VTI/AV VTI Ratio 0.9 LVOT Stroke Volume 64 ml LVOT CO 14.9 l/min LVOT CI 6.6 l/min/m2 Pulmonic Valve Name Value Normal PV Doppler
== END 2021-03-10 10:45 | disposition home or self-care (01) ==
LOC: ANHCARD 10:45
PROVIDERS: PCP Nurse Practitioner; Visit Provider Nurse Practitioner
DX: I26.99 Other pulmonary embolism without acute cor pulmonale (principal)
CPT/HCPCS: 93306

== ENCOUNTER → 2021-03-15 10:35 | Outpatient (CLI) | payer BC, SELFPAY ==
--- NOTE | ~2021-03-15 | US_ITS ---
EXAMINATION: US venous doppler [facility] DATE: 03/15/2021 11:45 INDICATION: Other pulmonary embolism without acute cor pulmonale TECHNIQUE: Grayscale ultrasound images without and with compression and Doppler ultrasound images of the bilateral upper extremity veins were obtained. COMPARISON: None. FINDINGS: The right internal jugular vein, subclavian vein, axillary vein, brachial veins, basilic vein, cephal ic vein, radial vein, and ulnar vein are patent. The left internal jugular vein, subclavian vein, axillary vein, brachial veins, basilic vein, cephali c vein, radial vein, and ulnar vein are patent. IMPRESSION: 1. No evidence of deep venous thrombosis. Reviewed, dictated and finalized at location B.
--- NOTE | ~2021-03-15 | US_ITS ---
EXAMINATION: US venous doppler [facility] DATE: 03/15/2021 11:45 INDICATION: Other pulmonary embolism without cor pulmonale TECHNIQUE: Luu scale images without and with compression and Doppler images of the bilateral lower e xtremity veins were obtained. COMPARISON: None FINDINGS: There is thrombosis in the right posterior tibial vein. The right common femoral vein, profunda femor al vein, femoral vein, popliteal vein, peroneal trunk, and greater saphenous vein are patent. The left common femoral vein, profunda femoral vein, femoral vein, popliteal vein, peroneal trunk, po sterior tibial veins, and greater saphenous vein are patent. IMPRESSION: 1. Right posterior tibial vein thrombosis. 2. No evidence of deep venous thrombosis on the left. Patient on blood thinners. Reviewed, dictated and finalized at location B. IMPRESSION: 1. Right posterior tibial vein thrombosis. 2. No evidence of deep venous thrombosis on the left. Patient on blood thinners .
== END ==
PROVIDERS: PCP Nurse Practitioner; Visit Provider Nurse Practitioner
DX: I26.99 Other pulmonary embolism without acute cor pulmonale (principal); I82.441 Acute embolism and thrombosis of right tibial vein
CPT/HCPCS: 93970

== ENCOUNTER 2021-08-25 19:03 | Emergency (ER) | payer BC, SELFPAY ==
--- NOTE | ~2021-08-25 | XR_ITS ---
EXAMINATION: XR chest 2V EXAM DATE: 08/25/2021 19:38 INDICATION: SOB w/ pain/tightness @ center of chest today. hx of PE TECHNIQUE: Frontal and lateral projections of the chest obtained and reviewed. There is no prior xochitl dy for comparison. FINDINGS: The lungs are clear. There are no pleural effusions. The cardiomediastinal silhouette is within normal limits. There is no pneumothorax suspected. The bones and soft tissues are unremarkab le. IMPRESSION: No acute cardiopulmonary findings. Reviewed, dictated and finalized at location G. 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
[2021-08-25 19:12] VITALS: BP 145/90; PULSE 88; RESP 18; TEMP 36.6; O2SAT 100
--- NOTE | 2021-08-25 19:21 | ECG_ITS ---
Measurements Intervals [place] Rate: 82 P: 50 TX: 168 QRS: 52 QRSD: 102 T: 39 QT: 396 QTc: 464 Interpretive Statements SINUS RHYTHM NORMAL ECG Electronically Signed On 08-26-2021 8:00:38 [employer] by Ryan Engle D.O.
--- NOTE | 2021-08-25 19:25 | ED.CHESTPAIN ---
HPI - Chest Pain General Chief Complaint: Chest Pain Stated Complaint: numb hands,chest pain Time Seen by Provider: 08/25/21 19:26 Source: patient Mode of arrival: ambulatory Limitations: no limitations History of Present Illness HPI narrative: this is a 35-year-old female with a history of a pulmonary embolism diagnosed in around February of 2021 is currently on Eliquis has had and numerous episodes of atypical chest. Presents today with some right-sided chest discomfort with no shortness of breath no cough or congestion no audible wheezing the patient describes having bilateral hand numbness that started earlier today while making dinner. Currently there is no nausea vomiting no abdominal pain no fever chills no diarrhea constipation. MD complaint: chest pain Pertinent past history: other ( history of pulmonary embolism) Onset (ago): hour(s) Timing of current episode: episodic Prior episodes: Yes Onset: during rest Pain location: right chest Quality: aching Relieving factors: nothing Exacerbating factors: nothing Related Data Allergies Allergy/AdvReac Type Severity Reaction Status Date / Time No Known Allergies Allergy Verified 08/25/21 19:20 Review of Systems Review of Systems: All systems reviewed & are unremarkable except as noted in HPI and below PMFSH Past Medical History Medical History Chest pain Thyroid disorder Surgical History Surgical History History of 2014, 2016 History of radial keratotomy S/P ACL repair 2020 Status post knee surgery Family History Family History Father Hypertension Mother Thyroid disorder Grandparent Bladder cancer Social History Social History Smoking packs per day: 1 Smoking cigarettes per day: 20.0 Smoking status: Former smoker Tobacco type: cigarettes Alcohol intake: current Substance use: never Gender identity (if verbalized by the patient): Female Sexual Orientation (if Verbalized by the Patient): Straight or Heterosexual Spiritual care concerns: No Exam Const: General: cooperative, healthy appearing, comfortable, no acute distress and well developed HENMT: Head: normal to inspection Ears: hearing grossly normal bilaterally General nose exam: Normal external nose present Face and sinus: normal facial exam Mouth: Yes Normal oral and palatal mucosa present Eyes: General: appearance normal, both eyes and all related structures Neck: Neck: normal visual inspection, full ROM and no lymphadenopathy Chest: Chest palpation & inspection: normal inspection of the chest Resp: Effort & Inspection: normal respiratory effort and able to speak in complete sentences Cardio: Jugular venous distension: no JVD Palpation: normal PMI Rate: regular rate Rhythm: regular rhythm GI: Inspection: normal to inspection Urinary Catheter: Urinary Catheter: patent and draining Skin: General skin exam: normal color and no rashes or lesions noted Neuro: General: oriented to person, oriented to place, oriented to time, patient oriented x3 and gait normal Extrem: Right lower extremity: normal to inspection, full ROM and normal capillary refill Psych: Appearance: grossly normal and well kempt Affect: Anxious affect present Course Course Emergency Course: EKG / chest x-ray and labs reviewed with patient, the patient was given a dose of Xanax. Patient anxiety had improved with Xanax EKG chest x-ray and labs reviewed with patient and patient is doing well and advised to continue her Eliquis and follow up with her primary care physician. Critical Care Time Critical Care Time Critical Care Time: No Discharge Plan Discharge Clinical Impression: Anxiety Patient Disposition: Home, Self-Care Condition: Stable Instr
[2021-08-25 19:34] LABS: Basophils Absolute Auto 0.06 K/mm3 (0.00-0.10); Basophils Percent Auto 0.6 % (0.0-1.0); Eosinophils Absolute Auto 0.19 K/mm3 (0.02-0.50); Hematocrit 40.4 % (35.0-49.0); Hemoglobin 13.2 g/dL (12.0-15.0); Immature Granulocyte Absolute 0.03 K/mm3 (0.00-0.00); Immature Granulocyte Percent A 0.3 % (0.0-0.0); Lymphocytes Absolute Auto 3.94 K/mm3 (1.10-4.50); Lymphocytes Percent Auto 42.3 % (18.0-42.0); Mean Corpuscular HGB Conc 32.7 g/dL (32.0-36.0); Mean Corpuscular Hemoglobin 28.3 pg (27.0-31.0); Mean Corpuscular Volume 86.7 fL (78.0-102.0); Mean Platelet Volume 9.5 fl (9.2-11.8); Monocytes Absolute Auto 0.66 K/mm3 (0.10-0.90); Monocytes Percent Auto 7.1 % (2.0-11.0); Neutrophils Absolute Auto 4.4 K/mm3 (1.7-7.2); Neutrophils Percent Auto 47.7 % (50.0-70.0); Platelet Count Result 355 K/mm3 (150-420); Red Blood Count 4.66 M/mm3 (4.20-5.40); Red Cell Distribution Width 12.7 % (11.6-14.4); White Blood Count 9.3 K/mm3 (4.8-10.8)
[2021-08-25] MEDS: ALPRAZolam (*CRX) 0.5 MG TABLET PO (19:42)
[2021-08-25 19:49] LABS: D Dimer 0.29 mg/L (0.19-0.50); Partial Thromboplastin Time 31.3 SEC (23.90-30.70)
[2021-08-25 19:52] LABS: Alanine Aminotransferase 45 U/L (14-59); Alkaline Phosphatase 63 U/L (46-116); Anion Gap 11 mmol/L (8-16); Aspartate Amino Transferase 13 U/L (15-37); Bilirubin,Total 0.3 mg/dL (0.00-1.00); Blood Urea Nitrogen 14 mg/dL (7-18); Calcium 8.8 mg/dL (8.5-10.1); Carbon Dioxide 27 mmol/L (21-32); Chloride 100 mmol/L (98-108); Estimated CRCL calculation 112 ml/min; Estimated Glomerular Filt Rate > 60; Glucose 108 mg/dL (70-99); Magnesium 2.2 mg/dL (1.8-2.4); Osmolality Calculated 287 mOsm/kg (285-295); Potassium 3.6 mmol/L (3.5-5.1); Sodium 138 mmol/L (136-145); Troponin I 6.3 ng/L (0.00-60.4)
[2021-08-25 20:04] VITALS: BP 130/89; PULSE 90; RESP 16; O2SAT 100
[2021-08-25 20:26] VITALS: BP 124/86; PULSE 94; RESP 17; TEMP 36.4; O2SAT 100
== END 2021-08-25 20:31 | disposition home or self-care (01) ==
PROVIDERS: Emergency Provider Emergency Medicine; PCP Internal Medicine
DX: F41.9 Anxiety disorder, unspecified (principal)
CPT/HCPCS: 36415; 71046; 80053; 83735; 84484; 85025; 85380; 85610; 85730; 93005; 99284; A9270

== ENCOUNTER 2021-10-31 14:19 | Outpatient (CLI) | payer BC, SELFPAY ==
[2021-10-31 14:32] LABS: Basophils Absolute Auto 0.04 K/mm3 (0.00-0.10); Basophils Percent Auto 0.4 % (0.0-1.0); Eosinophils Absolute Auto 0.15 K/mm3 (0.02-0.50); Eosinophils Percent Auto 1.5 % (1.0-6.0); Hemoglobin 12.8 g/dL (12.0-15.0); Immature Granulocyte Absolute 0.04 K/mm3 (0.00-0.00); Immature Granulocyte Percent A 0.4 % (0.0-0.0); Lymphocytes Percent Auto 34.2 % (18.0-42.0); Mean Corpuscular HGB Conc 32.8 g/dL (32.0-36.0); Mean Corpuscular Hemoglobin 28.2 pg (27.0-31.0); Mean Corpuscular Volume 85.9 fL (78.0-102.0); Mean Platelet Volume 9.5 fl (9.2-11.8); Monocytes Absolute Auto 0.62 K/mm3 (0.10-0.90); Monocytes Percent Auto 6.1 % (2.0-11.0); Neutrophils Absolute Auto 5.9 K/mm3 (1.7-7.2); Neutrophils Percent Auto 57.4 % (50.0-70.0); Platelet Count Result 358 K/mm3 (150-420); Red Blood Count 4.54 M/mm3 (4.20-5.40); Red Cell Distribution Width 12.2 % (11.6-14.4); White Blood Count 10.2 K/mm3 (4.8-10.8)
[2021-10-31 15:17] LABS: Alanine Aminotransferase 37 U/L (14-59); Alkaline Phosphatase 61 U/L (46-116); Anion Gap 7 mmol/L (8-16); Aspartate Amino Transferase 17 U/L (15-37); Bilirubin,Total 0.2 mg/dL (0.00-1.00); Blood Urea Nitrogen 19 mg/dL (7-18); Calcium 9.1 mg/dL (8.5-10.1); Carbon Dioxide 29 mmol/L (21-32); Chloride 102 mmol/L (98-108); Estimated Glomerular Filt Rate > 60; Glucose 85 mg/dL (70-99); Osmolality Calculated 287 mOsm/kg (285-295); Potassium 4.2 mmol/L (3.5-5.1); Sodium 138 mmol/L (136-145); Total Protein 7.5 g/dL (6.4-8.2)
== END 2021-10-31 14:20 | disposition home or self-care (01) ==
LOC: CHSLAB 14:23
PROVIDERS: PCP Internal Medicine
DX: E04.2 Nontoxic multinodular goiter (principal)
CPT/HCPCS: 36415; 80053; 85025

== ENCOUNTER 2022-01-20 09:34 | Outpatient (CLI) | payer BC, SELFPAY ==
[2022-01-20 10:41] LABS: Free T3 2.56 pg/mL (2.18-3.98); Free T4 Free Thyroxine 1.05 ng/dL (0.76-1.46); Thyroid Stimulating Hormone 2.17 uIU/mL (0.36-3.74)
== END 2022-01-20 09:35 | disposition home or self-care (01) ==
LOC: CHSLAB 09:35
PROVIDERS: PCP Nurse Practitioner; Visit Provider Nurse Practitioner
DX: E04.9 Nontoxic goiter, unspecified (principal)
CPT/HCPCS: 36415; 84439; 84443; 84481

== ENCOUNTER 2022-09-14 12:51 | Outpatient (CLI) | payer BC, SELFPAY ==
[2022-09-14 13:04] LABS: Basophils Absolute Auto 0.05 K/mm3 (0.00-0.10); Basophils Percent Auto 0.5 % (0.0-1.0); Eosinophils Absolute Auto 0.14 K/mm3 (0.02-0.50); Eosinophils Percent Auto 1.5 % (1.0-6.0); Hematocrit 38.6 % (35.0-49.0); Hemoglobin 12.9 g/dL (12.0-15.0); Immature Granulocyte Absolute 0.02 K/mm3 (0.00-0.00); Immature Granulocyte Percent A 0.2 % (0.0-0.0); Lymphocytes Absolute Auto 2.85 K/mm3 (1.10-4.50); Lymphocytes Percent Auto 30.6 % (18.0-42.0); Mean Corpuscular HGB Conc 33.4 g/dL (32.0-36.0); Mean Corpuscular Hemoglobin 28.8 pg (27.0-31.0); Mean Corpuscular Volume 86.2 fL (78.0-102.0); Mean Platelet Volume 9.7 fl (9.2-11.8); Monocytes Absolute Auto 0.61 K/mm3 (0.10-0.90); Monocytes Percent Auto 6.5 % (2.0-11.0); Neutrophils Absolute Auto 5.7 K/mm3 (1.7-7.2); Neutrophils Percent Auto 60.7 % (50.0-70.0); Platelet Count Result 276 K/mm3 (150-420); Red Blood Count 4.48 M/mm3 (4.20-5.40); Red Cell Distribution Width 12.5 % (11.6-14.4); White Blood Count 9.3 K/mm3 (4.8-10.8)
[2022-09-14 14:11] LABS: Alanine Aminotransferase 22 U/L (14-59); Albumin Level 3.6 g/dL (3.4-5.0); Alkaline Phosphatase 61 U/L (46-116); Anion Gap 9 mmol/L (8-16); Aspartate Amino Transferase 29 U/L (15-37); Bilirubin,Total 0.4 mg/dL (0.00-1.00); Blood Urea Nitrogen 15 mg/dL (7-18); Calcium 8.3 mg/dL (8.5-10.1); Carbon Dioxide 29 mmol/L (21-32); Chloride 104 mmol/L (98-108); Cholesterol 183 mg/dL (0-200); Estimated Glomerular Filt Rate > 60; Free T3 2.26 pg/mL (2.18-3.98); Free T4 Free Thyroxine 1.02 ng/dL (0.76-1.46); Glucose 95 mg/dL (70-99); HDL Direct 39 mg/dL (40-60); LDL Cholesterol Calculated 86 mg/dL (<130); Osmolality Calculated 294 mOsm/kg (285-295); Sodium 142 mmol/L (136-145); Thyroid Stimulating Hormone 2.38 uIU/mL (0.36-3.74); Total Protein 6.9 g/dL (6.4-8.2); Triglycerides 292 mg/dL (0-150)
== END 2022-09-14 12:52 | disposition home or self-care (01) ==
LOC: CHSLAB 12:53
PROVIDERS: PCP Nurse Practitioner; Visit Provider Nurse Practitioner
DX: Z13.220 Encounter for screening for lipoid disorders (principal); E07.9 Disorder of thyroid, unspecified
CPT/HCPCS: 36415; 80053; 80061; 84439; 84443; 84481; 85025

== ENCOUNTER 2022-09-28 13:36 | Outpatient (CLI) | payer BC, SELFPAY ==
--- NOTE | ~2022-09-28 | MMUS_ITS ---
EXAMINATION: MM diagnostic lauren BI w lawrence, US breast BI complete HISTORY: Palpable left breast lump. TECHNIQUE: Additional 3-D tomosynthesis images of the breasts were performed and synthetic 2-D images were generated. CAD analysis was submitted and interpreted. High resolution bilateral complete breas t ultrasound was performed. COMPARISON: None BREAST PARENCHYMAL COMPOSITION: Breast composed of scattered areas of fibroglandular density FINDINGS: MAMMOGRAPHIC FINDINGS: There are no suspicious masses, calcifications or architectural distortion in either breast to sugges t malignancy. ULTRASOUND: Complete bilateral US of all 4 quadrants of the breasts and retroareolar region was reviewed. Normal heterogeneous echotexture in both breasts without discrete mass. IMPRESSION: 1. No evidence for malignancy in either breast. 2. Routine yearly screening mammogram and regular clinical breast examination are recommended. BI-RADS Category 1: Negative Reviewed, dictated and finalized at location A. IMPRESSION: 1. No evidence for malignancy in either breast. 2. Routine yearly screening mammogram and regular clinical breast examination a re recommended. BI-RADS Category 1: Negative
== END 2022-09-28 13:37 | disposition home or self-care (01) ==
PROVIDERS: PCP Nurse Practitioner; Visit Provider Obstetrics & Gynecology
DX: N64.4 Mastodynia (principal)
CPT/HCPCS: 76641; 77062; 77066; G0279

== ENCOUNTER 2024-01-04 08:54 | Outpatient (CLI) | payer BC, SELFPAY ==
[2024-01-04 09:05] LABS: Basophils Absolute Auto 0.05 K/mm3 (0.00-0.10); Basophils Percent Auto 0.6 % (0.0-1.0); Eosinophils Absolute Auto 0.15 K/mm3 (0.02-0.50); Eosinophils Percent Auto 1.8 % (1.0-6.0); Hematocrit 40.8 % (35.0-49.0); Hemoglobin 13.9 g/dL (12.0-15.0); Immature Granulocyte Absolute 0.03 K/mm3 (0.00-0.00); Immature Granulocyte Percent A 0.4 % (0.0-0.0); Lymphocytes Absolute Auto 2.97 K/mm3 (1.10-4.50); Lymphocytes Percent Auto 35.1 % (18.0-42.0); Mean Corpuscular HGB Conc 34.1 g/dL (32-36); Mean Corpuscular Hemoglobin 29.6 pg (27.0-31.0); Mean Corpuscular Volume 86.8 fL (78.0-102.0); Mean Platelet Volume 9.2 fl (9.2-11.8); Monocytes Absolute Auto 0.57 K/mm3 (0.10-0.90); Monocytes Percent Auto 6.7 % (2.0-11.0); Neutrophils Absolute Auto 4.68 K/mm3 (1.70-7.20); Neutrophils Percent Auto 55.4 % (50.0-70.0); Platelet Count Result 307 K/mm3 (150-420); Red Cell Distribution Width 12.1 % (11.6-14.4); White Blood Count 8.5 K/mm3 (4.8-10.8)
[2024-01-04 10:04] LABS: Chloride 101 mmol/L (98-108); Potassium 4.4 mmol/L (3.5-5.1); Sodium 137 mmol/L (136-145)
[2024-01-04 10:05] LABS: Alanine Aminotransferase 32 U/L (14-59); Albumin Level 3.7 g/dL (3.4-5.0); Anion Gap 8 mmol/L (4-12); Aspartate Amino Transferase 17 U/L (15-37); Bilirubin,Total 0.4 mg/dL (0.00-1.00); Blood Urea Nitrogen 21 mg/dL (7-18); Calcium 8.6 mg/dL (8.5-10.1); Carbon Dioxide 28 mmol/L (21-32); Estimated Glomerular Filt Rate > 60; Glucose 107 mg/dL (70-99); Osmolality Calculated 287 mOsm/kg (285-295); Total Protein 7.2 g/dL (6.4-8.2)
[2024-01-04 10:06] LABS: Alkaline Phosphatase 49 U/L (46-116); Cholesterol 179 mg/dL (0-200); Free T3 2.68 pg/mL (2.18-3.98); Free T4 Free Thyroxine 1.07 ng/dL (0.76-1.46); HDL Direct 35 mg/dL (40-60); LDL Cholesterol Calculated 123 mg/dL (<130); Thyroid Stimulating Hormone 2.34 uIU/mL (0.36-3.74); Triglycerides 106 mg/dL (0-150)
[2024-01-04 13:08] LABS: Hemoglobin A1C 5.8 % (<5.7)
== END 2024-01-04 08:55 | disposition home or self-care (01) ==
LOC: CHSLAB 08:55
PROVIDERS: PCP Nurse Practitioner; Visit Provider Nurse Practitioner
DX: E07.9 Disorder of thyroid, unspecified (principal); R73.9 Hyperglycemia, unspecified
CPT/HCPCS: 36415; 80053; 80061; 83036; 84439; 84443; 84481; 85025

== ENCOUNTER 2024-02-29 07:31 | Outpatient (CLI) | payer BC, SELFPAY ==
--- NOTE | ~2024-02-29 | US_ITS ---
EXAMINATION: US thyroid DATE: 02/29/2024 08:40 INDICATION: Disorder of thyroid, unspecified. TECHNIQUE: Multiple ultrasound images of the thyroid were obtained. COMPARISON: Chest CT 02/18/2021 FINDINGS: The right thyroid lobe measures 7.5 x 2.6 x 3.5 cm. The left thyroid lobe is absent. The right thyro id lobe and isthmus are filled with numerous nodules of similar ultrasound appearance without normal intervening parenchyma. The largest nodule measures 3.2 cm. IMPRESSION: 1. Chronic multinodular goiter status post left hemithyroidectomy, probably not clinically significan t. Biopsy is likely not necessary. Reviewed, dictated and finalized at location A. IMPRESSION: 1. Chronic multinodular goiter status post left hemithyroidectomy, probably not clinically significant. Biopsy is likely not necessary.
== END 2024-02-29 07:32 | disposition home or self-care (01) ==
PROVIDERS: PCP Internal Medicine; Visit Provider Nurse Practitioner
DX: E07.9 Disorder of thyroid, unspecified (principal); E04.2 Nontoxic multinodular goiter
CPT/HCPCS: 76536

== ENCOUNTER 2024-06-26 12:25 | Outpatient (CLI) | payer BC, SELFPAY ==
--- NOTE | ~2024-06-26 | US_ITS ---
EXAMINATION: US FNA w image guidance DATE: 06/26/2024 13:30 INDICATION: Disorder of thyroid TECHNIQUE: A time-out was performed to verify the patient's name, date of , and procedure to be performed . The procedure and its benefits and risks were discussed with the patient. Risks specifically discus sed included bleeding and infection. The patient understood the risks and agreed to proceed. The neck was prepped and draped in the usual sterile manner. 6 mL 1% lidocaine was used for local anesthesia . 7 passes were made with a 25G needle into the lesion. Appropriate needle location was documented with continuous sonographic guidance. A sterile bandage was applied. There were no immediate compli cations. FINDINGS: Grayscale ultrasound images demonstrate biopsy needles advanced into the 3.2 cm right thyroid nodule of concern. IMPRESSION: 1. Successful ultrasound-guided fine needle aspiration of the 3.2 cm right thyroid nodule of concern . Reviewed, dictated and finalized at location A. 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 Successful ultrasound-guided fine needle aspiration of the 3.2 cm right thy roid nodule of concern.
== END 2024-06-26 12:26 | disposition home or self-care (01) ==
PROVIDERS: PCP Internal Medicine; Visit Provider Otolaryngology
DX: E07.9 Disorder of thyroid, unspecified (principal); E04.9 Nontoxic goiter, unspecified
CPT/HCPCS: 10005; 88172; 88173; 88177; 88305